=== PATIENT | male | born 1960 | race Caucasian/White ===

== ENCOUNTER → 2024-07-21 10:05 | Day surgery (SDC) | payer OTHER, SELFPAY ==
[2024-07-21 10:34] VITALS: BMI 29.2
== END ==
LOC: CATH 10:05
PROVIDERS: ATTENDING PHYSICIAN Internal Medicine; FAMILY PHYSICIAN Physician Assistant; OTHER PHYSICIAN Internal Medicine Cardiovascular Disease
DX: I48.92 Unspecified atrial flutter (principal); I48.0 Paroxysmal atrial fibrillation; I42.1 Obstructive hypertrophic cardiomyopathy; I10 Essential (primary) hypertension; E78.5 Hyperlipidemia, unspecified; K21.9 Gastro-esophageal reflux disease without esophagitis; Z87.891 Personal history of nicotine dependence; Z79.01 Long term (current) use of anticoagulants
CPT/HCPCS: 92960; 93005

== ENCOUNTER 2024-08-05 06:12 | Day surgery (SDC) | payer OTHER, SELFPAY ==
[2024-08-04 08:57] LABS: % Basophils 0.6 % (0-2); % Eosinophils 2.3 % (0-6); % Immature Granulocytes 0.4 % (0-0.5); % Lymphocytes 30.2 % (20.5-51.1); % Monocytes 7.5 % (1.7-9.3); Absolute Eosinophils 0.2 10^3/uL (0-0.7); Absolute Lymphocytes 2.1 10^3/uL (1.2-3.4); Absolute Monocytes 0.5 10^3/uL (0.1-0.6); Absolute Neutrophils 4.2 10^3/uL (1.4-6.5); Hematocrit 46.3 % (39.0-52.0); Hemoglobin 16.4 g/dL (13.0-18.0); Mean Corp Hgb Conc. 35.4 g/dL (33.0-37.0); Mean Corpuscular Hgb 31.7 pg (27.0-31.0); Mean Corpuscular Volume 89.6 fL (80.0-94.0); Mean Platelet Volume 10.5 fL (7.4-10.4); Nucleated Red Blood Cells % 0 % (-); Platelet Count 243 10^3/uL (130-400); Red Blood Cell Count 5.17 10^6/uL (4.70-6.10); White Blood Cell Count 7.1 10^3/uL (4.8-10.8)
[2024-08-04 09:03] LABS: INR 1.13; PT 14.3 Sec (11.4-14.6)
[2024-08-04 09:23] LABS: ALT (SGPT) 41 U/L (0-50); AST (SGOT) 30 U/L (17-59); Albumin 4.3 g/dl (3.5-5.0); Alkaline Phosphatase 96 U/L (38-126); Blood Urea Nitrogen 16 mg/dl (9-20); Carbon Dioxide 29 mmol/L (22-30); Chloride 102 mmol/L (98-107); Estimated Creatinine Clearance 66 ml/min; Glucose 114 mg/dl (70-99); Potassium 4.9 mmol/L (3.5-5.1); Sodium 140 mmol/L (135-145); Total Bilirubin 1.3 mg/dl (0.2-1.3); Total Protein 6.7 g/dl (6.3-8.2); eGFR > 60.00
[2024-08-05] VITALS (12 sets, daily range): BP systolic 99–128; BP diastolic 78–101; BMI 29.2
[2024-08-05] MEDS: TYLENOL 1000 MG PO (07:25)
--- NOTE | 2024-08-05 07:36 | ITS.CL.ABL ---
Social Media Marketing Analyst - Ablation
Ablation
Procedure Report:
ELECTROPHYSIOLOGIC STUDY AND POSSIBLE ABLATION
DATE: August 05, 2024
Primary Care Provider: Dr Maxime Gardner
INDICATION:
Symptomatic Atrial Tachycardia/Fibrillation.
Persistent
He has a history of symptomatic AF, poorly controlled with attempted medical therapy. Hypertrophic obstructive cardiomyopathy. Initial ablation 2016 and did well for many years but in 2021 developed recurrent symptomatic episodes despite
antiarrhythmic drug therapy with amiodarone and he underwent EP study and ablation June 01, 2022 at which time we found reconnection of the right sided pulmonary veins which was addressed with ablation. Cardioversion of atrial fibrillation
restored sinus rhythm. Programmed electrical stimulation induced mitral annular flutter. RF application at the mitral valve annulus from the base of the left atrial appendage was unable to affect the tachycardia. Attempts were made to engage the
coronary sinus for epicardial mapping/ablation at the mitral valve annulus but the ablation catheter could not be advanced far enough into the coronary sinus. Cardioversion then restored sinus rhythm. With the use of antiarrhythmic drug therapy he
has done well until recently with recurrent symptomatic atrial flutter. He was cardioverted on July 21, 2024 but despite continued use of amiodarone he recurred several days later. He presents now for EP study and attempted ablation with
consideration for use of pulsed electric field energy at the mitral valve annulus and possible reattempt at cannulation of the coronary sinus.
HAS-BLED: 0
CHADSVASc: 2
HOCM (HFpEF)
Age
PRESENTING RHYTHM: AT
HISTORY: See H and P.
Symptomatic AF, poorly controlled with attempted medical therapy.
ANTIARRHYTHMIC DRUG: Amiodarone
ANTICOAGULATION: Apixaban
'TIME-OUT': called and confirmed.
SEDATION/ANESTHESIA: provided via the anesthesia department using general anesthesia.
PROCEDURE:
Ultrasound Guidance performed by ca was utilized for femoral venous Vascular Access b/l.
A decapolar CS catheter was placed within the CS for mapping and pacing.
The intracardiac ultrasound catheter was positioned in the RA for continuous intracardiac ultrasound imaging.
Heparin bolus and infusion to target ACT at 300 -350 seconds was administered. Transseptal puncture was performed. This entailed advancing a sheath with dilator into the superior vena cava and withdrawing both (monitoring intracardiac ultrasound,
fluoroscopy and tip pressure) with the tip oriented toward the atrial septum. The fossa ovalis was engaged (indicated by sudden displacement of the sheath tip as well as tenting of the fossa seen on intracardiac ultrasound).
The [employer] transseptal system was used. Left atrial catheter position was confirmed by echocardiographic imaging and fluoroscopy followed by RF delivery using the VCE system resulting in successful LA access with pressure monitoring
demonstrating LA pressure waveforms (LA mean pressure 15 mm Hg). The sheath was advanced over the dilator and positioned in the left atrium.
The [employer] Grid multipolar mapping catheter was initially positioned through the transseptal sheath for high density mapping.
Geometry and voltage mapping was performed using the Lopez multipolar grid catheter. Ensite-X was utilized for three-dimensional electroanatomical mapping.
A 3-D map was created using Ensite-X in Voxel mode. A 3-D reconstructed CT image was compared to the 3-D [employer] map to assist in anatomic evaluation, mapping and ablation.
The rhythm is an irregular atrial tachycardia/slow atrial fibrillation.
Mapping finds very low voltage reconnection of the left inferior pulmonary vein posteriorly as well as a channel of low voltage conduction along the mid posterior wall superior to inferior. Additionally, mapping finds electrical reconnection at the
previously placed mitral annular RF ablation line from the inferior pulmonary vein to the mitral valve annulus. Once mapping was completed the multipolar grid catheter was substituted for the pulsed electric field ablation system catheter. The
[employer] PFA catheter and system was used for cardiac ablation. Catheter positioning was guided and confirmed using both I.C.E. and fluoroscopy.
Ablation strategy consisted of ablation to reisolate the left inferior pulmonary vein, additional ablation lesion set to isolate the posterior wall of the left atrium for atrial fibrillation and ablation targeting mitral annular flutter by ablating
using pulsed electric field energy from the left inferior pulmonary vein down to the mitral valve annulus. Prior to ablation at the mitral valve annulus phenylephrine was used to increase systolic blood pressure to approximately 150 mmHg then 200
mcg of intravenous nitroglycerin was administered to reduce the risk of coronary vasospasm. During energy delivery at this location there is no ST segment abnormalities or wall motion abnormalities observed on intracardiac echocardiogram. Once
ablation was completed cardioversion restored sinus rhythm. The multipolar grid catheter was then substituted and mapping performed in sinus rhythm demonstrating a line of electrical block at the mitral valve annulus. There is still a very low
voltage channel of electrical conduction at the posterior wall of the left atrium. Therefore the ablation catheter was substituted for the mapping catheter and ablation targeting the posterior wall conduction was performed. Once this was completed
the mapping catheter was utilized to remapped finding full electrical isolation with entrance and exit block at the posterior wall, there is electrical isolation of each of the pulmonary veins (LSPV, LIPV, RSPV, RIPV) and there is a line of
electrical block from the left inferior pulmonary vein down to the mitral valve annulus.
Programmed electrostimulation including burst atrial pacing down to 250 ms failed to induce any sustained arrhythmias.
I.C.E. :
Pre-Ablation Post-Ablation
LVEF: 55 % 55 %
WMA: none none
Pericardial effusion: none none
COMPLICATIONS:
None
SUMMARY:
- Mapping and ablation to isolate the PVs
- Additional AF ablation set after PVI.
- Mapping and ablation of second tachycardia
- 3-D Electroanatomical Mapping
- Intracardiac Ultrasound
Post ablation, I discussed today's findings and results with the patient's Rahul.
RECOMMENDATIONS:
- Observe in monitored bed.
- Maintain oral anticoagulation.
- Continue amiodarone to 200 mg daily. We may consider reducing to 100 mg daily at his next office visit if he maintains sinus rhythm and ultimately there may be an opportunity to discontinue amiodarone.
- Office visit with me in 3-4 months.
Copy to:
Dr Maxime Gardner
[2024-08-05 08:43] LABS: ACT-LR - POC 263 Seconds (116-155)
[2024-08-05 09:04] LABS: ACT-LR - POC 263 Seconds (116-155)
[2024-08-05 09:26] LABS: ACT-LR - POC 335 Seconds (116-155)
[2024-08-05 09:47] LABS: ACT-LR - POC 319 Seconds (116-155)
[2024-08-05] MEDS: ANESTHETIC LOZENGE 1 LOZENGE PO (12:34)
--- NOTE | 2024-08-05 12:42 | W.PN.UPDATE ---
Update Note
Progress Note Update
64 yo WM s/p redo PVI (same day). He denies cp, sob, cathy clears, voiding, amb w/o dizziness, EKG SR 1deg AVB. He will resume OAC Eliquis tonight at home. He will continue Amiodarone and metoprolol for now. Activity restrictions reviewed. He will f/u
Dr. Antoine in 1 mo. He is for d/c home after 1pm if groin stable.
== END 2024-08-05 13:01 | disposition home or self-care (01) ==
LOC: CATH 06:12
PROVIDERS: ATTENDING PHYSICIAN Internal Medicine Cardiovascular Disease; FAMILY PHYSICIAN Physician Assistant
DX: I48.0 Paroxysmal atrial fibrillation (principal); I47.19 Other supraventricular tachycardia; I50.32 Chronic diastolic (congestive) heart failure; I42.1 Obstructive hypertrophic cardiomyopathy; E78.5 Hyperlipidemia, unspecified; R06.09 Other forms of dyspnea; Z79.01 Long term (current) use of anticoagulants; Z79.899 Other long term (current) drug therapy; K21.9 Gastro-esophageal reflux disease without esophagitis; R74.8 Abnormal levels of other serum enzymes; I48.92 Unspecified atrial flutter
CPT/HCPCS: C1730; C1892; C1894; C1732; 36415; 80053; 83735; 85025; 85347; 85610; 86850; 86900; 86901; 93005; 93655; 93656; 93657; C1733; C1759; C1760; C1766

== ENCOUNTER → 2025-01-05 07:51 | Outpatient (REF) | payer MEDICARE, SELFPAY | LOC: HWRCS 07:51 | PROVIDERS: ATTENDING PHYSICIAN Internal Medicine Cardiovascular Disease; FAMILY PHYSICIAN Physician Assistant | DX: R94.31 Abnormal electrocardiogram [ECG] [EKG] (principal); R07.9 Chest pain, unspecified | CPT/HCPCS: 78452; 93017; A9500; J2785 ==